=== PATIENT | male | born 1975 | race Caucasian/White ===

== ENCOUNTER 2021-08-29 04:02 | Emergency (ER) | payer BC, OTHER ==
[2021-08-29 04:46] VITALS: BP 120/90; PULSE 92; TEMP 98.8; BMI 33.5
[2021-08-29] MEDS ORDERED: LIDOCAINE VISCOUS 2% ORAL/TOP 15 ML UNIT-DOSE CUP MM ONE (05:17)
[2021-08-29] MEDS ORDERED: BENZOCAINE/MENTH/CETYLPYRD CL 1 EACH LOZENGE MM PRN (05:17)
== END 2021-08-29 06:58 | disposition home or self-care (01) ==
LOC: JER 04:02
DX: U07.1 COVID-19 (principal); J02.9 Acute pharyngitis, unspecified
CPT/HCPCS: 87804; 99283-25; C9803; U0003; U0005

== ENCOUNTER 2025-05-27 06:00 | Day surgery (SDC) | payer BC, OTHER ==
[2025-05-22 13:16] VITALS: BMI 32.8
[2025-05-27] MEDS ORDERED: EPINEPHrine 1:1,000 1,000 MCG/ML ML ONE (07:22)
[2025-05-27] MEDS ORDERED: SUCCINYLCHOLINE CHLORIDE 200 MG/10 ML SYRINGE ONE (07:27)
[2025-05-27] MEDS ORDERED: PROPOFOL 20 ML ONE ×2 (07:27→08:07)
[2025-05-27] MEDS ORDERED: MIDAZOLAM HCL 2 MG/2 ML SINGLE DOSE VIAL ONE (07:28)
[2025-05-27] MEDS ORDERED: BUPIVACAINE HCL/EPINEPHRINE/PF 30 ML VIAL IJ ONE (07:30)
[2025-05-27] MEDS ORDERED: ROPIVACAINE HCL/PF 100 MG/20 ML VIAL ONE (07:40)
[2025-05-27] MEDS ORDERED: TRANEXAMIC ACID 1000 MG/10 ML VIAL ONE (08:23)
[2025-05-27] MEDS ORDERED: ePHEDrine SULFATE 50 MG/1 ML AMPULE ONE (08:36)
[2025-05-27] MEDS: ACETAMINOPHEN 1000 MG/100 ML BAG IVPB ONE (10:45)
[2025-05-27] MEDS ORDERED: ACETAMINOPHEN INJECTION 100 ML ONE (10:47)
[2025-05-27] MEDS ORDERED: FENTANYL CITRATE/PF 50 MCG/ML VIAL ONE (10:52)
[2025-05-27 11:32] VITALS: RESP 20; TEMP 97.1
[2025-05-27 12:54] VITALS: BP 110/64; PULSE 68
[2025-05-27] MEDS ORDERED: PATIENT'S OWN MEDICATION (NON-FORMULARY) (Alfuzosin Hcl [Alfuzosin Hcl Er] 10 MG Tab.Er.24 PO SCH (22:00)
[2025-05-28] MEDS ORDERED: METOPROLOL SUCCINATE 50 MG PO SCH (10:00)
[2025-05-28] MEDS ORDERED: PATIENT'S OWN MEDICATION (NON-FORMULARY) (Losartan/Hydrochlorothiazide [Losartan-Hctz 100- PO SCH (10:00)
[2025-05-28] MEDS ORDERED: ROSUVASTATIN PO SCH (10:00)
== END 2025-05-27 12:45 | disposition home or self-care (01) ==
LOC: FASU 06:00
PROVIDERS: ATTEND Orthopaedic Surgery
PROC: 0LM14ZZ Reattachment of Right Shoulder Tendon, Percutaneous Endoscopic Approach (ICD-10-PCS; 2025-05-27)
PROC: 0RNJ4ZZ Release Right Shoulder Joint, Percutaneous Endoscopic Approach (ICD-10-PCS; principal; 2025-05-27 08:25)
PROC: 0LS34ZZ Reposition Right Upper Arm Tendon, Percutaneous Endoscopic Approach (ICD-10-PCS; 2025-05-27 08:25)
PROC: 0RHJ44Z Insertion of Internal Fixation Device into Right Shoulder Joint, Percutaneous Endoscopic Approach (ICD-10-PCS; 2025-05-27 08:25)
DX: S46.011D Strain of muscle(s) and tendon(s) of the rotator cuff of right shoulder, subsequent encounter (principal); S43.431D Superior glenoid labrum lesion of right shoulder, subsequent encounter; X58.XXXD Exposure to other specified factors, subsequent encounter; Y92.9 Unspecified place or not applicable; Y93.9 Activity, unspecified
CPT/HCPCS: 88304-TC; 94760; C1713